=== PATIENT | female | born 1955 | race Caucasian/White ===

== ENCOUNTER 2016-07-21 08:32 | Day surgery (SDC) | payer OTHER ==
--- NOTE | ~2016-07-21 | EGD ---
EGD REPORT [facility] [address] [place]. [address] NAME: CLEMENCIA VICKERS : 51 STATUS : REG [facility]#: [id number] AGE: 61 ADM/REG DATE : 07/21/16 MR#: [id number] REPORT SERV DATE: 07/21/16 DICTATED BY: VALERIE GREENFIELD DATE: 07/21/16 REPORT STATUS : Draft TRANSCRIBED BY: [facility] DATE: 07/21/16 Endoscopy Center Patient Name: Clemencia Vickers Date of : 1955 Attending MD: VALERIE GREENFIELD MD Procedure Date No Time: 07/21/2016 Procedure: Colonoscopy Indications: Clinically significant diarrhea of unexplained origin, FH of Colon Cancer - 1st degree relative Referring MD: LATISHA WHITTAKER III Medicines: as per anesthesia Complications: No immediate complications. Procedure: Pre-Anesthesia Assessment: - ASA Grade Assessment: III - A patient with severe systemic disease. After I obtained informed consent, the scope was passed under direct vision. Throughout the procedure, the patient's blood pressure, pulse, and oxygen saturations were monitored continuously. The [facility] [id number] was introduced through the anus and advanced to the cecum, identified by appendiceal orifice and ileocecal valve. The colonoscopy was performed without difficulty. The patient tolerated the procedure. The quality of the bowel preparation was fair. Findings: The perianal and digital rectal examinations were normal. A few small and large-mouthed diverticula were found in the sigmoid colon. Internal hemorrhoids were found during endoscopy and were mild. Four biopsies were obtained in the rectum and in the ascending colon with cold forceps for histology. Impression: - Diverticulosis in the sigmoid colon. - Internal hemorrhoids. - Four biopsies were obtained in the rectum and in the ascending colon. Recommendation: - Await pathology results. - Repeat colonoscopy in 5 years for surveillance. Procedure Code(s): --- Professional --- 70058, Colonoscopy, flexible, proximal to splenic flexure; with biopsy, single or multiple EGD REPORT [address] [facility] [address] NAME: CLEMENCIA VICKERS : [birth year] STATUS : REG [facility]#: [id number] AGE: 61 ADM/REG DATE : 07/21/16 MR#: [id number] REPORT SERV DATE: 07/21/16 DICTATED BY: VALERIE GREENFIELD. DATE: 07/21/16 REPORT STATUS : Draft TRANSCRIBED BY: [employer] SERVICES DATE: 07/21/16 Diagnosis Code(s): --- Professional --- K64.8, Other hemorrhoids K57.30, Diverticulosis of large intestine without perforation or abscess without bleeding R19.7, Diarrhea, unspecified Z80.0, Family history of malignant neoplasm of digestive organs CPT copyright 2013 [employer]. All rights reserved. The codes documented in this report are preliminary and upon finish specialist review may be revised to meet current compliance requirements. VALERIE GREENFIELD MD 07/21/2016 10:21 AM This report has been signed electronically. Number of Addenda: 0 Note Initiated On: 07/21/2016 9:34 AM Scope Withdrawal Time 0 hours 10 minutes 52 seconds [id number] [facility] [address]
[~2016-07-21 08:32] MED LIST: APTIOM PO; ASAB PO; CALTRAT600 PO; CO Q-10100 MG PO; COLESTID1 GM PO; EFFEX75 PO; FORTAMET1000 MG PO; FORTAMET500 MG PO; PRAVACHOL40 MG PO; PRIN5 PO; PROAIR HFA INH; QVAR80 MCG INH; SINGULAIR1 PO; VICTOZA18 MG/3 ML SC; VIT B-SIX 50 MG50 MG PO; VITAMIN D3 PO
== END 2016-07-21 23:59 | disposition home health service (06) ==
LOC: DMU 08:32
PROVIDERS: Internal Medicine Gastroenterology
PROC: 0DBK8ZX Excision of Ascending Colon, Via Natural or Artificial Opening Endoscopic, Diagnostic (ICD-10-PCS; principal; 2016-07-21 09:30)
DX: K64.8 Other hemorrhoids (principal); K57.30 Diverticulosis of large intestine without perforation or abscess without bleeding; Z80.0 Family history of malignant neoplasm of digestive organs; G40.909 Epilepsy, unspecified, not intractable, without status epilepticus; J45.909 Unspecified asthma, uncomplicated; G47.33 Obstructive sleep apnea (adult) (pediatric); E11.9 Type 2 diabetes mellitus without complications; F41.9 Anxiety disorder, unspecified; E66.01 Morbid (severe) obesity due to excess calories; Z88.0 Allergy status to penicillin; Z88.8 Allergy status to other drugs, medicaments and biological substances; Z79.82 Long term (current) use of aspirin; Z79.899 Other long term (current) drug therapy; Z88.2 Allergy status to sulfonamides; Z99.89 Dependence on other enabling machines and devices; Z90.49 Acquired absence of other specified parts of digestive tract; Z86.010 Personal history of colon polyps; Z98.890 Other specified postprocedural states
CPT/HCPCS: 82962; 88305